=== PATIENT | female | born 1955 | race Caucasian/White ===

== ENCOUNTER 2018-07-01 08:03 | Emergency (ER) | payer OTHER ==
--- NOTE | 2018-07-01 10:01 | NUR ---
SKILLED NURSING INFO Sw called by ER, pt requesting visit. Sw and ER nurse met with pt who is wanting information on shelters. Pt states she came from [place] and will need fdc till she gets he check on the . Pt states she got off bus in [facility] and a man gave her a ride here. I asked pt why did she come from [place] to [place], did she know someone here, did she have a plan. Pt refused to give any information. Pt nicely dressed, make up on, suit case and blanket, working cell phone. Pt stated she wanted [facility] not a [facility]. Sw provided # for [facility]. [facility] called [facility] and was told pt would need to call herself to they can screen her. Sw informed pt who said she would call.
== END 2018-07-01 09:48 | disposition home or self-care (01) ==
LOC: EDH 08:03
DX: M54.5 Low back pain (principal); J45.909 Unspecified asthma, uncomplicated; Z98.51 Tubal ligation status; W18.39XA Other fall on same level, initial encounter; Y93.89 Activity, other specified; Y92.89 Other specified places as the place of occurrence of the external cause; Y99.8 Other external cause status
CPT/HCPCS: 72170